=== PATIENT | female | born 1935 | race Caucasian/White ===

== ENCOUNTER 2019-11-17 11:39 | Day surgery (SDC) | payer MEDICARE, MEDICAID ==
[2019-11-15 12:10] LABS: HEMATOCRIT 34.8 % (36.0-47.0); HEMOGLOBIN 11.9 g/dL (12.0-15.5); MEAN CORPUSCULAR HEMOGLOBIN 30.9 pg (27.0-33.4); MEAN CORPUSCULAR HGB CONC 34.1 g/dL (32.0-36.0); MEAN CORPUSCULAR VOLUME 91 fl (80-97); RED BLOOD COUNT 3.84 10^6/uL (3.72-5.28); RED CELL DISTRIBUTION WIDTH 13.8 % (11.5-14.0)
[2019-11-15 12:24] LABS: ANION GAP 10 (5-19)
[2019-11-15 12:43] LABS: PLATELET COUNT 148 10^3/uL (150-450)
[2019-11-15 12:45] LABS: ABSOLUTE LYMPHOCYTES# (MANUAL) 1.9 10^3/uL (0.5-4.7); ABSOLUTE MONOCYTES # (MANUAL) 1.3 10^3/uL (0.1-1.4); BASOPHILS % (MANUAL) 0 % (0-2); EOSINOPHILS % (MANUAL) 3 % (0-6); LYMPHOCYTES % (MANUAL) 19 % (13-45); MONOCYTES % (MANUAL) 13 % (3-13); RBC MORPHOLOGY COMMENT NORMO-CYTIC/CHROMIC; SEGMENTED NEUTROPHILS % (MAN) 65 % (42-78); TOTAL CELLS COUNTED 100
[2019-11-15 12:46] LABS: PLATELET CLUMPS PRESENT; PLATELET COMMENT DECREASED
[2019-11-15 13:16] LABS: BLOOD UREA NITROGEN 31 mg/dL (7-20); CALCIUM 9.4 mg/dL (8.4-10.2); CARBON DIOXIDE 22 mmol/L (22-30); CHLORIDE 110 mmol/L (98-107); GLUCOSE 124 mg/dL (75-110); POTASSIUM 4.6 mmol/L (3.6-5.0)
[~2019-11-17 11:39] MED LIST: AMPICILLIN SODIUM 2 GM in NORMAL SALINE 100 ML IV PRN; LACTATED RINGERS 1000 ML IV PRN; LIDOCAINE 0.5% INJ-PF (5 MG/ML) 50 ML SDV SUBCUT PRN
[2019-11-17] MEDS ORDERED: MIDAZOLAM 2 MG/2 ML INJ ONE (14:08)
[2019-11-17] MEDS ORDERED: FENTANYL CITRATE INJ/PF 100 MCG/2 ML AMPUL ONE (14:08)
[2019-11-17] MEDS ORDERED: PROPOFOL INJ 200 MG/20 ML VIAL IV ONE (14:09)
[2019-11-17] MEDS ORDERED: EPHEDRINE SULFATE INJ 50 MG/1 ML AMPULE ONE (14:09)
[2019-11-17] MEDS ORDERED: CIPROFLOXACIN HCL/FLUOCINOLONE 0.3%/0.025% OTIC ONE (14:23)
[2019-11-17] MEDS ORDERED: MEPERIDINE HCL/PF INJ 25 MG/1 ML DISP.SYRIN IV PRN (14:41)
[2019-11-17] MEDS ORDERED: PROMETHAZINE HCL INJ 25 MG/1 ML VIAL IV PRN ×2 (14:41)
[2019-11-17] MEDS ORDERED: FENTANYL CITRATE INJ/PF 100 MCG/2 ML AMPUL IV PRN ×3 (14:41)
[2019-11-17] MEDS ORDERED: OXYCODONE-ACETAMINOPHEN 5-325 MG TABLET PO PRN ×2 (14:41)
[2019-11-17] MEDS ORDERED: DIPHENHYDRAMINE HCL 50 MG/ML VIAL IV PRN (14:41)
--- NOTE | 2019-11-17 15:46 | Operative Report ---
Operative Report-[facility] Operative Report: Date: 17 November 2019 History: 84-year-old female with a foreign body in the left ear. Patient had molds for hearing amplification performed and the molding became lodged in the external auditory canal. Attempted removal in clinic was unsuccessful secondary to pain. Patient presents today for evaluation under anesthesia left ear and removal foreign body left ear. Informed consent was obtained from her son who has medical power of criminal defense attorney. Pre-operative diagnosis: Foreign body left ear Post operative diagnosis: Same as above Procedure: 1. Removal foreign body left ear 2. Examination of anesthesia, left ear Surgeon: Ha Vasquez MD, FACS, [facility] Anesthesia: MAC Procedure: After receiving informed consent from the son, who has medical power of criminal defense attorney, the patient was brought back to the operating room. Patient was placed supine on the operating table. After successful induction with IV anesthesia, the foreign body of the left ear was successfully removed. The foreign body was a silicone mold for hearing amplification. The microscope was brought into the field and the left ear was examined. A properly sized speculum was placed into into the external auditory canal and the tympanic membrane appeared normal. Debris was removed from the mastoid bowl. No evidence of trauma was apparent. Patient was given back to anesthesia successfully awoke the patient the anesthetic. She was then transferred to the postanesthesia care unit in stable condition with spontaneous respirations. Estimated blood loss: N/A Fluids: 100 mL The patient was then transported to the Post Anesthesia Care Unit in stable condition with spontaneous respiration. No complication.
[2019-11-17 18:45] VITALS: BP 132/68
== END 2019-11-17 16:47 | disposition home or self-care (01) ==
LOC: OROUT 11:39
PROVIDERS: ATTEND Otolaryngology
DX: T16.2XXA Foreign body in left ear, initial encounter (principal); X58.XXXA Exposure to other specified factors, initial encounter; H90.3 Sensorineural hearing loss, bilateral; I10 Essential (primary) hypertension; I25.2 Old myocardial infarction
CPT/HCPCS: 36415 ×2; 84132; 85025; 80048; 00124; 69205; J0290; J2250; J3490; J3010; J7050; J2704; A9270; 124